=== PATIENT | male | born 1975 | race Caucasian/White ===

== ENCOUNTER 2017-02-21 05:52 | Day surgery (SDC) | payer BC ==
[2017-02-21] VITALS (12 sets, daily range): BP systolic 82–145; BP diastolic 75–95; PULSE 68–81; RESP 13–23; Ht 184.2 cm; Wt 81.7 kg
[~2017-02-21] VITALS: Ht 184.2 cm; Wt 81.7 kg
[~2017-02-21 05:52] MED LIST: CEFAZOLIN 2 GM/50 ML (PMX) 50 ML IVPB ONE; SOD CHLORIDE 0.9% 1,000 ML IV ONE
[2017-02-21] MEDS ORDERED: POLYMYXIN/BACITRACIN 1L IRRIG ONE (06:27)
[2017-02-21] MEDS ORDERED: BUPIVACAINE 0.25% (MPF) 30 ML INJ ONE ×2 (06:27→07:36)
[2017-02-21] MEDS ORDERED: IBUP800T25 PO (06:42)
[2017-02-21] MEDS ORDERED: BUPIVACAINE 0.25% (MPF) 30 ML INJ INJ ONE (06:54)
[2017-02-21] MEDS ORDERED: ROPIVACAINE 0.5 % 30 ML VIAL ONE ×2 (07:00→07:35)
[2017-02-21] MEDS ORDERED: CEFAZOLIN 1 GM INJ ONE (07:32)
[2017-02-21] MEDS ORDERED: PROPOFOL 20 ML ONE (07:32)
[2017-02-21] MEDS ORDERED: NEOSTIGMINE 3 MG/3 ML SYRINGE ONE (07:32)
[2017-02-21] MEDS ORDERED: ROCURONIUM 50 MG INJ ONE (07:32)
[2017-02-21] MEDS ORDERED: GLYCOPYRROLATE 0.4 MG INJ ONE (07:32)
[2017-02-21] MEDS ORDERED: FENTAnyl 50 MCG/ML VIAL ONE (07:35)
[2017-02-21] MEDS ORDERED: MIDAZOLAM 1 MG/ML 2 ML INJ ONE (07:35)
[2017-02-21] MEDS ORDERED: ONDANSETRON 4 MG INJ ONE (07:35)
[2017-02-21] MEDS ORDERED: DEXAMETHASONE 4 MG/ML 1 ML INJ ONE (07:35)
[2017-02-21] MEDS ORDERED: IPRATROPIUM (NEB) 0.5 MG/2.5 ML AMP HHN PRN (08:30)
[2017-02-21] MEDS ORDERED: EPHEDrine SULFATE 50 MG/5 ML SYG IV PRN (08:30)
[2017-02-21] MEDS ORDERED: ALBUTEROL 0.083% (NEB) 2.5 MG/3 ML AMP HHN PRN (08:30)
[2017-02-21] MEDS ORDERED: MIDAZOLAM 1 MG/ML 2 ML INJ IV PRN (08:30)
[2017-02-21] MEDS ORDERED: TRIMETHOBENZAMIDE 100 MG/ML VIAL IM PRN (08:30)
[2017-02-21] MEDS ORDERED: DIPHENHYDRAMINE 50 MG INJ IV PRN (08:30)
[2017-02-21] MEDS ORDERED: HYDROmorphONE (0.2 MG/ML) 10ML SYG IV PRN ×3 (08:30)
[2017-02-21] MEDS ORDERED: hydrALAzine 20 MG INJ IV PRN (08:30)
[2017-02-21] MEDS ORDERED: FENTAnyl 50 MCG/ML VIAL IV PRN ×3 (08:30)
[2017-02-21] MEDS ORDERED: ONDANSETRON 4 MG INJ IV PRN (08:30)
[2017-02-21] MEDS ORDERED: MEPERIDINE 25 MG INJ IV PRN (08:30)
[2017-02-21] MEDS ORDERED: LABETALOL HCL 20MG INJ IV PRN (08:30)
[2017-02-21] MEDS ORDERED: OXYCODONE/ACETAMINOPHEN (5/325) TAB PO PRN ×2 (08:30)
[2017-02-21] MEDS ORDERED: SUGAMMADEX SODIUM 200 MG/2 ML VIAL IV ONE (08:33)
--- NOTE | 2017-02-21 08:39 | SIPON ---
Date/Time of Note Date/Time of Note DATE: 02/21/17 TIME: 08:38 Operative Report Preoperative Diagnosis left inguinal hernia Postoperative Diagnosis left inguinal hernia Operation/Procedure Performed open left inguinal hernia repair with medium ultra pro hernia system mesh therapeutic injection of subcutaneous local anesthesia Surgeon see signature line psychology assistant none Anesthesia: general Estimated blood loss: 0 - 10 ml's Transfusion Required none Specimen none Grafts/Implants none Complications none Bill GALINDO Feb 21, 2017 08:39
[2017-02-21] MEDS ORDERED: HYDROCODONE/APAP (5/325) TAB PO ONE (09:00)
--- NOTE | 2017-02-21 09:44 | OPR ---
DATE OF OPERATION: 02/21/2017 INDICATIONS: This is a 41-year-old male with symptomatic painful left inguinal hernia. He requested surgical repair. Risks, alternatives, benefits, and personnel were discussed with the patient. Patient expressed understanding and consents to the operation. PREOPERATIVE DIAGNOSIS: Incarcerated left inguinal hernia. POSTOPERATIVE DIAGNOSIS: Incarcerated left inguinal hernia. OPERATION PERFORMED: 1. Open incarcerated left inguinal hernia repair with medium- sized Ultrapro hernia system mesh. 2. Therapeutic subcutaneous injection of local anesthesia. SURGEON: Cheli Montes SPECIMEN: None. COMPLICATIONS: None. ANESTHESIA: General. ESTIMATED BLOOD LOSS: 10 mL. OPERATIVE PROCEDURE: Patient is taken to the OR and prepped and draped in usual sterile fashion. Surgical time-out was performed. IV antibiotics were given. Left inguinal oblique incision was made with a 10 blade. Dissection cautery was carried down to the external oblique fascia. This was opened with a 15 blade. This incision is extended medially and inferiorly, laterally and superiorly with Metzenbaum scissors. The cord structures were encircled with a Jennifer drain. An indirect hernia is incarcerated and was manually reduced. The portion of the Ultrapro hernia system mesh was used to bolster and reinforce this space. This was secured to the inguinal ligament by running 0 Prolene suture from the pubic tubercle along the shelving edge of the inguinal ligament. Superiorly, this was secured to the internal oblique with interrupted 3-0 Vicryl. Onlay mesh was secured in a similar fashion from the pubic tubercle along the shelving edge of the inguinal ligament. Straps were created to reapproximate around the cord structures to recreate the inguinal ring with interrupted 0 Prolene. Onlay mesh is secured to the internal oblique with interrupted 3-0 Vicryl. External oblique fascia was closed with a running 3-0 Vicryl. Onesimo's fascia was closed with interrupted 3-0 Vicryl. The skin was closed using skin karen. Therapeutic subcutaneous local anesthesia was injected throughout the incision site. Dry dressings were applied. Dictated By: Cheli Montes /fnt/tlr /Document#: [id number]
== END 2017-02-21 11:00 | disposition home or self-care (01) ==
LOC: SDS 05:52
PROVIDERS: ATTEND Surgery
DX: K40.30 Unilateral inguinal hernia, with obstruction, without gangrene, not specified as recurrent (principal)
CPT/HCPCS: 49507; C1781; J0690; J1100; J2250; J2405; J2795; J3010; Z7512; Z7610; J2710